=== PATIENT | female | born 1960 | race Caucasian/White ===

== ENCOUNTER 2016-12-25 22:54 | Emergency (ER) | payer BC ==
[~2016-12-25] VITALS: Ht 165.1 cm; Wt 86.3 kg
[~2016-12-25 22:54] MED LIST: AUGMENTIN875 MG PO; NAPROSYN500 MG PO; VENLAFAXINE HCL25 MG PO; VICODIN 5-3001 EACH PO
[2016-12-25 22:56] VITALS: BP 113/99
== END 2016-12-26 01:12 | disposition home or self-care (01) ==
LOC: EME 22:54
DX: S86.012A Strain of left Achilles tendon, initial encounter (principal); X50.9XXA Other and unspecified overexertion or strenuous movements or postures, initial encounter; Y93.K9 Activity, other involving animal care
CPT/HCPCS: 73610; 99281; 99284